=== PATIENT | female | born 1940 | race Caucasian/White ===

== ENCOUNTER 2022-01-31 10:15 | Outpatient (CLI) | payer MEDICARE, SELFPAY ==
[2022-01-31 11:58] LABS: Basophils Percent Auto 0.4 % (0.2-1.2); Eosinophils Absolute Auto 0.2 K/mm3 (0-0.3); Eosinophils Percent Auto 2.4 % (0-4.4); Hematocrit 44.8 % (37.0-47.0); Hemoglobin 14.5 g/dL (12.0-15.0); Immature Granulocyte Absolute 0.04 K/mm3 (0.00-0.031); Immature Granulocyte Percent A 0.4 % (0-0.5); Lymphocytes Absolute Auto 1.64 K/mm3 (0.9-3.2); Lymphocytes Percent Auto 18.2 % (18.3-44.2); Mean Corpuscular HGB Conc 32.4 g/dl (32-36); Mean Corpuscular Hemoglobin 29.8 pg (26-34); Mean Platelet Volume 10.2 fl (7.4-10.4); Monocytes Absolute Auto 0.7 K/mm3 (0.1-0.6); Monocytes Percent Auto 7.2 % (2.6-8.5); Neutrophils Absolute Auto 6.4 K/mm3 (1.3-6.7); Neutrophils Percent Auto 71.4 % (45.5-73.1); Platelet Count Result 301 k/mm3 (150-375); Red Blood Count 4.87 M/mm3 (4.2-5.4); Red Cell Distribution Width 13.2 % (11.5-14.5)
[2022-01-31 12:07] LABS: Hemoglobin A1C 5.9 % (<5.7)
[2022-01-31 12:08] LABS: Alanine Aminotransferase 16 U/L (6-35); Albumin Level 4.4 g/dL (3.5-5.1); Alkaline Phosphatase 103 U/L (38-126); Anion Gap 9 mmol/L (8-16); Aspartate Amino Transferase 48 U/L (14-36); Bilirubin,Total 1.9 mg/dL (0.2-1.3); Blood Urea Nitrogen 32 mg/dL (7-17); Calcium 9.2 mg/dL (8.4-10.2); Carbon Dioxide 32 mmol/L (22-30); Chloride 100 mmol/L (98-107); Cholesterol 208 mg/dL (0-200); Estimated Glomerular Filt Rate 39; Glucose 126 mg/dL (65-110); HDL Direct 41 mg/dL; Potassium 4.6 mmol/L (3.4-5.0); Sodium 141 mmol/L (137-145); Triglycerides 135 mg/dL (<150)
[2022-01-31 12:22] LABS: LDL Cholesterol Direct 103 mg/dL
== END 2022-01-31 10:16 | disposition home or self-care (01) ==
LOC: ANHGOSHLAB 10:17
PROVIDERS: PCP Family Medicine; Visit Provider Physician Assistant
DX: R73.03 Prediabetes (principal); Z51.81 Encounter for therapeutic drug level monitoring; Z79.899 Other long term (current) drug therapy; Z00.00 Encounter for general adult medical examination without abnormal findings
CPT/HCPCS: 36415; 80053; 80061; 83036; 84443; 85025

== ENCOUNTER 2022-03-21 08:49 | Outpatient (CLI) | payer MEDICARE, SELFPAY ==
[2022-03-21 19:02] LABS: Alanine Aminotransferase 18 U/L (6-35); Albumin Level 4.1 g/dL (3.5-5.1); Alkaline Phosphatase 85 U/L (38-126); Anion Gap 12 mmol/L (8-16); Aspartate Amino Transferase 37 U/L (14-36); Bilirubin,Total 1.4 mg/dL (0.2-1.3); Blood Urea Nitrogen 26 mg/dL (7-17); Calcium 8.5 mg/dL (8.4-10.2); Carbon Dioxide 29 mmol/L (22-30); Chloride 100 mmol/L (98-107); Estimated Glomerular Filt Rate 47; Glucose 111 mg/dL (65-110); Potassium 3.6 mmol/L (3.4-5.0); Sodium 141 mmol/L (137-145)
== END 2022-03-21 08:50 | disposition home or self-care (01) ==
PROVIDERS: PCP Family Medicine; Visit Provider Physician Assistant
DX: N18.9 Chronic kidney disease, unspecified (principal); R74.8 Abnormal levels of other serum enzymes
CPT/HCPCS: 36415; 80053

== ENCOUNTER 2022-04-02 08:30 | Outpatient (CLI) | payer MEDICARE, SELFPAY ==
--- NOTE | ~2022-04-02 | MM_ITS ---
EXAMINATION: MM screening [facility] BI w panda HISTORY: Screening mammogram TECHNIQUE: Craniocaudal and mediolateral oblique 3-D tomosynthesis images were obtained and synthetic 2-D images were generated. CAD analysis was submitted and interpreted. COMPARISON: 06/28/2016, 06/04/2014 BREAST PARENCHYMAL COMPOSITION: There are scattered areas of fibroglandular density. FINDINGS: Scattered benign-appearing calcifications are present. There is no suspicious mass, calcifi cation, or architectural distortion to suggest malignancy in either breast. There has been no suspici ous interval change. IMPRESSION: 1. No mammographic evidence of malignancy. 2. Recommend routine screening mammography in one year. BI-RADS Category 2: Benign finding(s). Reviewed, dictated and finalized at location A.
== END 2022-04-02 08:31 | disposition home or self-care (01) ==
PROVIDERS: PCP Family Medicine; Visit Provider Physician Assistant
DX: Z12.31 Encounter for screening mammogram for malignant neoplasm of breast (principal)
CPT/HCPCS: 77063; 77067

== ENCOUNTER 2023-01-29 10:00 | Outpatient (CLI) | payer MEDICARE, SELFPAY ==
[2023-01-29 20:30] LABS: Basophils Percent Auto 0.6 % (0.2-1.2); Eosinophils Absolute Auto 0.2 K/mm3 (0-0.3); Eosinophils Percent Auto 4.6 % (0-4.4); Hematocrit 42.9 % (37.0-47.0); Hemoglobin 13.4 g/dL (12.0-15.0); Immature Granulocyte Absolute 0.01 K/mm3 (0.00-0.031); Immature Granulocyte Percent A 0.2 % (0-0.5); Lymphocytes Percent Auto 29.8 % (18.3-44.2); Mean Corpuscular HGB Conc 31.2 g/dl (32-36); Mean Platelet Volume 10.2 fl (7.4-10.4); Monocytes Absolute Auto 0.4 K/mm3 (0.1-0.6); Monocytes Percent Auto 6.9 % (2.6-8.5); Neutrophils Absolute Auto 2.9 K/mm3 (1.3-6.7); Neutrophils Percent Auto 57.9 % (45.5-73.1); Platelet Count Result 289 k/mm3 (150-375); Red Blood Count 4.47 M/mm3 (4.2-5.4); Red Cell Distribution Width 13.5 % (11.5-14.5)
[2023-01-29 20:48] LABS: Alanine Aminotransferase 20 U/L (6-35); Albumin Level 4.1 g/dL (3.5-5.1); Alkaline Phosphatase 79 U/L (38-126); Anion Gap 4 mmol/L (8-16); Aspartate Amino Transferase 38 U/L (14-36); Bilirubin,Total 1.5 mg/dL (0.2-1.3); Blood Urea Nitrogen 31 mg/dL (7-17); Carbon Dioxide 35 mmol/L (22-30); Chloride 101 mmol/L (98-107); Cholesterol 183 mg/dL (0-200); Estimated Glomerular Filt Rate 47; Glucose 103 mg/dL (65-110); HDL Direct 44 mg/dL; Potassium 4.6 mmol/L (3.4-5.0); Sodium 140 mmol/L (137-145); Triglycerides 109 mg/dL (<150)
[2023-01-29 20:59] LABS: LDL Cholesterol Direct 86 mg/dL
== END 2023-01-29 10:01 | disposition home or self-care (01) ==
LOC: ANHGOSHLAB 10:02
PROVIDERS: PCP Family Medicine; Visit Provider Physician Assistant
DX: I10 Essential (primary) hypertension (principal); R73.03 Prediabetes; Z79.899 Other long term (current) drug therapy
CPT/HCPCS: 36415; 80053; 80061; 83036; 84443; 85025

== ENCOUNTER 2023-05-31 09:40 | Outpatient (CLI) | payer MEDICARE, SELFPAY ==
[2023-05-31 18:46] LABS: Alanine Aminotransferase 20 U/L (6-35); Albumin Level 4.2 g/dL (3.5-5.1); Alkaline Phosphatase 86 U/L (38-126); Anion Gap 12 mmol/L (8-16); Aspartate Amino Transferase 36 U/L (14-36); Bilirubin,Total 1.5 mg/dL (0.2-1.3); Blood Urea Nitrogen 34 mg/dL (7-17); Calcium 8.9 mg/dL (8.4-10.2); Carbon Dioxide 28 mmol/L (22-30); Chloride 100 mmol/L (98-107); Cholesterol 197 mg/dL (0-200); Estimated Glomerular Filt Rate 43; Glucose 109 mg/dL (65-110); HDL Direct 55 mg/dL; Sodium 140 mmol/L (137-145); Triglycerides 105 mg/dL (<150)
[2023-05-31 18:58] LABS: LDL Cholesterol Direct 94 mg/dL
[2023-05-31 19:23] LABS: Hemoglobin A1C 5.7 % (<5.7)
== END 2023-05-31 09:41 | disposition home or self-care (01) ==
PROVIDERS: PCP Family Medicine; Visit Provider Physician Assistant
DX: I48.91 Unspecified atrial fibrillation (principal); E66.01 Morbid (severe) obesity due to excess calories; I10 Essential (primary) hypertension; R73.03 Prediabetes
CPT/HCPCS: 36415; 80053; 80061; 83036

== ENCOUNTER 2024-12-24 10:52 | Outpatient (CLI) | payer MEDICARE, SELFPAY ==
--- OUTSIDE RECORDS SUMMARY | 2024-12-24 11:50 | XMS_ITS ---
Author Organization [facility] Address [address] [place] [id number] Care Team Providers Care Revolving Inventory Clerk Name Role Phone Prateek Walsh MD Primary Care Provider +1 [phone] Active Problems Problem Noted Date Diagnosed Date Pacemaker 07/31/2018 Asystole 04/02/2018 Assessment & Plan (04/03/2018 9:14 AM CDT): Likely from vasalvagal in the setting of sitting on commode hours post op after w/ LOC with tele showing afib w/ RVR going into complete heart block w/ a slow junctional escape rhythm. no CP or SOB; no CPR or epi needed. - AED pads and atropine bedside; consider temp transcutaneous pacer - DCPPM today - trop neg x 2 - TTE thickened aoritc and mitral valve. EF 50-55%, Status post right hip replacement 04/02/2018 Assessment & Plan (04/03/2018 6:55 PM CDT): on 04/01 ortho following. Oxy prn for pain. - per ortho OOTB today - ortho number [phone] Assessment & Plan (04/02/2018 7:18 AM CDT): 04/01 w/ above complication; patient in some pain; ortho following - oxycodone prn for pain Complete heart block 04/02/2018 Assessment & Plan (04/04/2018 2:43 PM CDT): -This was likely in the setting of vaso vagal and pain from her hip replacement with baseline AV sandeep dysfunction (SSS?) and receiving BB. When patient arrived to CCU she had no more events of CHB or bradycardia and remained asymptomatic. -Home atenolol was held; -EP was consulted and patient went for a duel chamber pacemaker yesterday morning with no complications. -TSH was normal, trop neg x 2, and TTE showed EF 50-55% w/ thickened/calcified aortic and mitral valve leaflets. -no more episodes of asytole, bradycardia overnight; pacemaker checked today with no abnormalities -per EP weight bearing restrictions on right arm for 6 weeks; should not lift, push or pull anything > 10lbs; can move if she has to but should avoid weight bearing as much as possible. Assessment & Plan (04/02/2018 6:42 PM CDT): Her pauses are in the setting of likely AV sandeep disease. We cannot rule out a vagally mediated process but given the length of her pause and the associated symptoms and the possible need to control her rate or cardiovert her in the future it would be prudent to offer her a device at this time. - hold all AV sandeep blocking - atropine at bedside with pacing pads - NPO @ [place] for a dual chamber device - discussed with Dr. Angeles, will place device on right side given the need for rehabilitation and use of her left arm for cane support. No contraindication from a surgical side to place pacemaker at this time - prior to and after the implantation of her device she should not be on any heparin products A-fib 03/31/2018 Assessment & Plan (04/04/2018 2:38 PM CDT): Patient has been in afib w/ RVR since in the CCU and her atenolol was being held. - underwent dual chamber PPM placement yesterday -atenolol 50 mg qd started yesterday -overnight on tele she remained in Afib with RVR around 110s but peaking at 140s briefly a/w low pressures -atenolol uptitrated to 100mg qd today for better blood pressure control. -continuous tele monitoring; t/b with EP re dose adjustments in Atenolol. Aim for HR< 110 -F/U in EP clinic as arranged. Appointment and discharge instructions provided. -warfarin 4 mg started for anticoagulation today; per EP no rivaroxaban until 04/07 Assessment & Plan (04/02/2018 6:44 PM CDT): Currently - mild degree of rapid ventricular response. Continue to monitor, hold any AV sandeep blocking agents prior to device implantation. - she should be on a novel anticoagulants or warfarin for CVA prophylaxis after the implantation of her device - she should not be on any heparin products - AV sandeep blockade can be used after device implantation - she will need to follow up with Cardiology in the future to discuss rhythm control strategies if desired, her atrial anatomy may make this an undesirable strategy Assessment & Plan (04/03/2018 9:11 AM CDT): afib w/ RVR up 150s overnight. Holding atenolol, warfarin, and lovenox. TSH normal - DOAC or warfarin per EP recs. 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 Assessment & Plan (04/02/2018 7:06 AM CDT): continue HCTZ and lisinopril Current Treatment and Therapy Plans No current plan information found. Past Treatment and Therapy Plans No past plan information found. Lifetime Dose Tracking * Chemical Lifetime Dose Automatic Entry Manual Entr y Air kerma at the reference point (Ka,r) 43 mGy 0 mGy 43 mGy
--- OUTSIDE RECORDS SUMMARY | 2024-12-24 11:50 | XMS_ITS | Referral Summary ---
Author Organization [facility] Address [address] [place] [address] Care Team Providers Care Drywall Boardhanger Name Role Phone Prateek Walsh MD Primary Care Provider [phone] [phone] Encounters Date Type Department Care Team Description 10/16/2024 Orders Only [facility] Cardiology [address] [place] [address] [place] [address] Demar Angeles MD PhD from Last 3 Months Allergies No known active allergies Medications Eliquis 5 mg tablet TAKE 1 TABLET BY MOUTH TWICE A DAY 180 tablet 3 06/19/2024 Active dilTIAZem CD 120 mg 24 hr capsule TAKE 1 CAPSULE BY MOUTH EVERY DAY 90 capsule 3 09/21/2024 Active hydroCHLOROthia zide 12.5 mg tablet TAKE 1 TABLET BY MOUTH EVERY DAY IN THE MORNING 90 tablet 3 09/21/2024 Active lisinopriL (PRINIVIL,ZESTR IL) 10 mg tablet TAKE 1 TABLET BY MOUTH EVERY DAY 90 tablet 3 10/05/2024 Active atenoloL (TENORMIN) 100 mg tablet TAKE 1 TABLET BY MOUTH EVERY DAY 90 tablet 3 10/08/2024 Active Active Problems Problem Noted Date Diagnosed Date [...] per ortho OOTB today - ortho number [phone] Assessment & Plan (04/02/2018 7:18 AM CDT): [...] (02/05/2018): Added automatically from request for surgery [id number] Persistent atrial fibrillation 02/05/2018 Overview (04/03/2018): Added automatically from request for surgery [id number] Status post total replacement of left hip 2017 Joint pain, hip 10/30/2017 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 Assessment & Plan (04/02/2018 7:06 AM CDT): continue HCTZ and lisinopril Immunizations Immunization Administration Dates Next Due Influenza, Quad, Adjuvantated, Intramuscular Influenza, Quadrivalent, Rec ombinant, Egg Free, Preservative Free, Intramuscular 04/23/2019 Influenza, Quadrivalent, Spl it, Preservative Free, Intramuscular 04/12/2020 Influenza, Trivalent, High D ose, Split, Preservative Free, Intramuscular 04/01/2018 TD Preservative Free 01/21/2020 Td, adsorbed 01/21/2020 Social History Tobacco Use Types Packs/Day Years Used Date Smoking Tobacco: Never Smokeless Tobacco: Never Tobacco Cessation:Counseling Given: Not Answered Alcohol Use Standard Drinks/Week Comments No 0 (1 standard drink = 0.6 oz pur e alcohol) Comments No Sex and Gender Information Value Date Recorded Sex Assigned at Not on file Legal Sex Female 6:23 AM SIGN ERECTOR AND REPAIRER Gender Identity Not on file Sexual Orientation Not on file Last Filed Vital Signs Vital Sign Reading Time Taken Comments Blood Pressure 111/72 08/20/2023 1:54 PM SIGN ERECTOR AND REPAIRER Pulse 77 08/20/2023 1:54 PM SIGN ERECTOR AND REPAIRER Temperature 36.8 C (98.2 F) 09/17/2022 12:02 PM SIGN ERECTOR AND REPAIRER Respiratory Rate 16 09/17/2022 12:02 PM SIGN ERECTOR AND REPAIRER Oxygen Saturation 93% 08/20/2023 1:54 PM SIGN ERECTOR AND REPAIRER Inhaled Oxygen Concentration - - Weight 110.7 kg (244 lb) 08/20/2024 12:41 PM SIGN ERECTOR AND REPAIRER Height 165.1 cm (5' 5) 08/20/2024 12:41 PM SIGN ERECTOR AND REPAIRER Body Mass Index 40.6 08/20/2024 12:41 PM SIGN ERECTOR AND REPAIRER Plan of Treatment Not on file Medical Devices Implanted Type Area Universal Grinder Tool Device Identifier Shelf Expiration Date Model / Serial / Lot [employer] [id number] Tendril Mri 8fr 52cm Is-1 Bipolar Connector Active Fixation - [id number] - [id number] Implanted:Qty: 1 on 04/03/2018 by Demar Angeles MD PhD at [facility] Lead Right: Heart [employer] [id number] 08/14/2019 [id number] / [id number] / [employer] [id number] Tendril Mri 8fr 46cm Is-1 Bipolar Connector Active Fixation - [id number] - [id number] Implanted:Qty: 1 on 04/03/2018 by Demar Angeles MD PhD at [facility] Lead Right: Heart [employer] [id number] 07/16/2019 [id number] / [id number] / [employer] [id number] Articul/Santosh 36mm Cementless M Specification No Skirt Greek Neck - S0 - [id number] Implanted:Qty: 1 on 12/26/2017 by Liam Green MD at [facility] Other - see comments Left: Hip [employer] 09/11/2022 [id number] / 0 / [id number] Description:head [employer] [place] 52mm 36mm Liner Hip Neutral Acetabular Altrx Sterile - S0 - [id number] Implanted:Qty: 1 on 12/26/2017 by Liam Green MD at [facility] Other - see comments Left: Hip [employer] 10/02/2022 [id number] / 0 / [id number] Description:Liner Stem Femoral Actis 3 High Offset Hip Collar - S0 - [id number] Implanted:Qty: 1 on 12/26/2017 by Liam Green MD at [facility] Other - see comments Left: Hip [employer] 05/14/2027 [id number] / 0 / [id number] Description:Stem [employer] [id number] Assurity Mri 11o00hr 2 Chamber Is-1 Connector Thk6mm Pacemaker - [id number] - [id number] Implanted:Qty: 1 on 04/03/2018 by Demar Angeles MD PhD at [facility] Pacemaker Right: Chest Wall [employer] [id number] 08/14/2019 [id number] / [id number] / [employer] [place] 6.5mm 40mm Screw Acetabular Cancellous Bone Sterile - S0 - [id number] Implanted:Qty: 1 on 12/26/2017 by Liam Green MD at [facility] Screw Left: Hip [employer] 02/11/2027 [id number] / 0 / [id number] [employer] [place] 6.5mm 30mm Screw Acetabular Cancellous Bone Revision - S0 - [id number] Implanted:Qty: 1 on 12/26/2017 by Liam Green MD at [facility] Screw Left: Hip [employer] 01/11/2027 0 / 0 / [id number] [employer] [place] 52mm Sector Shell Hip Acetabular Gription Sterile Latex - [id number] Implanted:Qty: 1 on 12/26/2017 by Liam Green MD at [facility] Left: Hip [employer] 08/14/2027 [id number] / / [employer] [id number] [place] 52mm 36mm Hip Neutral Liner Acetabular Altrx Sterile Latex Free - [id number] Implanted:Qty: 1 on 04/01/2018 by Liam Green MD at [facility] Right: Hip [employer] [id number] 02/11/2023 [id number] / / [employer] [id number] [place] 6.5mm 40mm Acetabular Cancellous Screw Bone Sterile - [id number] Implanted:Qty: 1 on 04/01/2018 by Liam Green MD at [facility] Right: Hip [employer] [id number] 10/13/2027 [id number] / / [employer] [id number] [place] 52mm Sector Hip Shell Acetabular Gription Sterile Latex Free - [id number] Implanted:Qty: 1 on 04/01/2018 by Liam Green MD at [facility] Right: Hip [employer] [id number] 02/12/2028 [id number] / / [employer] [id number] [place] 6.5mm 15mm Acetabular Cancellous Screw Bone Sterile - [id number] Implanted:Qty: 1 on 04/01/2018 by Liam Green MD at [facility] Right: Hip [employer] [id number] 05/14/2027 0 / / [employer] [id number] Actis Collar Hip 3 High Offset Stem Femoral - [id number] Implanted:Qty: 1 on 04/01/2018 by Liam Green MD at [facility] Right: Hip [employer] [id number] 11/12/2027 [id number] / / [employer] [id number] Articul/Santosh 36mm Cementless M Specification No Skirt Greek Neck Latex Free - [id number] Implanted:Qty: 1 on 04/01/2018 by Liam Green MD at [facility] Right: Hip [employer] [id number] 11/11/2022 0 / / Procedures Procedure Name Priority Date/Time Associated Diagnosis Comments DEVICE CHECK - REMOTE Routine 10/16/2024 4:00 AM CDT from Last 3 Months Results * DEVICE CHECK - REMOTE (10/16/2024 4:00 AM CDT) Anatomical Region Laterality Modality Other 10/16/2024 4:00 AM CDT Narrative 10/19/2024 10:07 AM CDT Interpretation Summary: Battery and Leads (BL) Normal parameters noted on battery and lead(s) --- 3 years remaining (this is an estimate based on prior usage) Presenting Rhythm (AR) Ventricular Pacing (METEOROLOGICAL OBSERVER) --- rate 60 Atrial Fibrillation or Flutter Arrhythmic events (AE) Longstanding persistent atrial fibrillation and/or flutter Anticoagulation (AC) Patient prescribed Apixaban (Eliquis) Patient on anticoagulant therapy Transmission Information (TI) Device Summary Report Procedure Note Demar Angeles MD PhD - 10/19/2024 Interpretation Summary: Battery and Leads (BL) Normal parameters noted on battery and lead(s) --- 3 years remaining(this is an estimate based on prior usage) Presenting Rhythm (AR) Ventricular Pacing (METEOROLOGICAL OBSERVER) --- rate 60 Atrial Fibrillation or Flutter Arrhythmic events (AE) Longstanding persistent atrial fibrillation and/or flutter Anticoagulation (AC) Patient prescribed Apixaban (Eliquis) Patient on anticoagulant therapy Transmission Information (TI) Device Summary Report us Demar Angeles MD PhD [facility] PRO CEDURES Final Result from Last 3 Months Insurance [employer] MEDICARE ADVANTAGE [facility] HMO REF Advance Directives For more information, please contact: [phone] * Full Code (Latest Code Status on File) Date Activated Date Inactivated Comments 04/01/2018 1:43 PM 04/07/2018 6:41 PM * Full Code Date Activated Date Inactivated Comments 12/26/2017 4:03 PM 12/27/2017 4:17 PM Care Teams Drywall Boardhanger Relationship Specialty Start Date End Date Prateek Walsh MD PCP - General 12/17/16
--- OUTSIDE RECORDS SUMMARY | 2024-12-24 11:50 | XMS_ITS | Encounter Summary ---
Author Organization [facility] Address [address] [place] [address] Care Team Providers Care Rn New Graduate Name Role Phone Prateek Walsh MD Primary Care Provider +1 -[phone] Unknown, Notinfile Unavailable Unavailable Encounter Details Date Type Department Care Team (Late st Contact Info) Description 04/14/2018 Telephone [facility] [address] [place] [address] Tania Lara MD [address] [place] [address] Social History Tobacco Use Types Packs/Day Years Used Date Smoking Tobacco: Never Smokeless Tobacco: Never Alcohol Use Standard Drinks/Week Comments No 0 (1 standard drink = 0.6 oz pur e alcohol) Comments No Sex and Gender Information Value Date Recorded Sex Assigned at Not on file Legal Sex Female 6:23 AM AUTOMATION CLERK Gender Identity Not on file Sexual Orientation Not on file documented as of this encounter Plan of Treatment Not on file documented as of this encounter Visit Diagnoses Not on filedocumented in this encounter Care Teams Rn New Graduate Relationship Specialty Start Date End Date Prateek Walsh MD PCP - General 12/17/16 Unknown, Notinfile Referring Physician 09/12/20 09/16/22 documented as of this encounter
--- OUTSIDE RECORDS SUMMARY | 2024-12-24 11:50 | XMS_ITS | Clinical Summary ---
Author Organization [facility] Address [address] [place] [id number] Care Team Providers Care Health Education Specialist Name Role Phone Prateek Walsh MD Primary Care Provider [phone] [phone] Allergies No known active allergies Medications Eliquis [...] per ortho OOTB today - ortho number [phone] Assessment & Plan (04/02/2018 7:18 AM CDT): [...] (02/05/2018): Added automatically from request for surgery [id number] Persistent atrial fibrillation 02/05/2018 Overview (04/03/2018): Added automatically from request for surgery [id number] Status post total replacement of left hip 2017 Joint pain, hip 10/30/2017 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 Assessment & Plan (04/02/2018 7:06 AM CDT): continue HCTZ and lisinopril Encounters Date Type Department Care Team Description 10/16/2024 Orders Only [facility] Cardiology [address] [facility] [address]th [place] [address] [place] [address] Demar Angeles MD PhD from Last 3 Months Immunizations Immunization Administration Dates Next Due Influenza, Quad, Adjuvantated, Intramuscular Influenza, Quadrivalent, Rec ombinant, Egg Free, Preservative Free, Intramuscular 04/23/2019 Influenza, Quadrivalent, Spl it, Preservative Free, Intramuscular 04/12/2020 Influenza, Trivalent, High D ose, Split, Preservative Free, Intramuscular 04/01/2018 TD Preservative Free 01/21/2020 Td, adsorbed 01/21/2020 Surgical History Surgery Date Site/Laterality Comments GALLBLADDER SURGERY Gallbladder Surgery - Laparoscopic 15 years ago (Added by TW Conv) AR TOTAL ABDOMINAL HYSTERECT W/WO RMVL TUBE OVARY Hysterectomy - (Added by TW Conv) HIP SURGERY 12/26/2017 Left HYSTERECTOMY 07/15/2014 - 07/14/2015 DILATION AND CURETTAGE OF UTERUS Medical History Medical History Date Comments Atrial fibrillation (HCC) Arthritis HTN (hypertension) Type 2 diabetes mellitus (HCC) pre diabetes Delayed emergence from gener al anesthesia 2014 slow to wake up; did not req uire reintubation, no ICU A-fib (HCC) 03/31/2018 Uterine cancer (HCC) Family History Medical History Relation Name Comments Lung cancer Father Family history of lung cancer - (Added by TW Conv) Heart failure Mother Family history of heart failure - (Added by TW Conv) Stroke Mother Family history of cerebrovascular accident - (Added by TW Conv) Relation Name Status Comments Father (Age 76) Mother (Age 95) Social History Tobacco Use Types Packs/Day Years Used Date Smoking Tobacco: Never Smokeless Tobacco: Never Tobacco Cessation:Counseling Given: Not Answered Alcohol Use Standard Drinks/Week Comments No 0 (1 standard drink = 0.6 oz pur e alcohol) Comments No Sex and Gender Information Value Date Recorded Sex Assigned at Not on file Legal Sex Female 6:23 AM SALES PORTER Gender Identity Not on file Sexual Orientation Not on file Obstetrics History Para Term AB IAB SAB Ectopic Multiple Livin g Live Births 0 0 0 0 0 0 0 0 0 0 0 Last Filed Vital Signs Vital Sign Reading Time Taken Comments Blood Pressure 111/72 08/20/2023 1:54 PM SALES PORTER Pulse 77 08/20/2023 1:54 PM SALES PORTER Temperature 36.8 C (98.2 F) 09/17/2022 12:02 PM SALES PORTER Respiratory Rate 16 09/17/2022 12:02 PM SALES PORTER Oxygen Saturation 93% 08/20/2023 1:54 PM SALES PORTER Inhaled Oxygen Concentration - - Weight 110.7 kg (244 lb) 08/20/2024 12:41 PM SALES PORTER Height 165.1 cm (5' 5) 08/20/2024 12:41 PM SALES PORTER Body Mass Index 40.6 08/20/2024 12:41 PM SALES PORTER Plan of Treatment Health Maintenance Due Date Last Done Comments Depression Screening 1939 Fall Risk Assessment 1939 Osteoporosis Screening-Bone Density Scan 1939 Hepatitis B Screening 1957 Pneumococcal vaccine 65+ (1 of 2 - PCV) 1958 Zoster Vaccine (1 of 2) 1989 Well Visit 65+ 02/24/2004 DTaP/Tdap/Td Vaccine (1 - Tdap) 01/22/2020 0, 01/21/2020 Influenza Vaccine (Season Ended) 2025 04/12/2020, 04/12/2020, 04/23/2019, Additional history exists Medical Devices Implanted Type Area Travel Nurse Device Identifier Shelf Expiration Date Model / Serial / Lot [employer] [id number] Tendril Mri 8fr 52cm Is-1 Bipolar Connector Active Fixation - [id number] - [id number] Implanted:Qty: 1 on 04/03/2018 by Demar Angeles MD PhD at [facility] Lead Right: Heart [employer] [id number] 08/14/2019 [id number]-1 2 / [id number] / [employer] [id number] Tendril Mri 8fr 46cm Is-1 Bipolar Connector Active Fixation - [id number] - [id number] Implanted:Qty: 1 on 04/03/2018 by Demar Angeles MD PhD at [facility] Lead Right: Heart [employer] [id number] 07/16/2019 [id number]-6 6 / [id number] / [employer] [id number] Articul/Santosh 36mm Cementless M Specification No Skirt [place] Neck - S0 - [id number] Implanted:Qty: 1 on 12/26/2017 by Liam Green MD at [facility] Other - see comments Left: Hip [employer] 09/11/2022 [id number] / 0 / [id number] Description:head [employer] [place] 52mm 36mm Liner Hip Neutral Acetabular Altrx Sterile - S0 - [id number] Implanted:Qty: 1 on 12/26/2017 by Liam Green MD at [facility] Other - see comments Left: Hip [employer] 10/02/2022 [id number] / 0 / [id number] Description:Liner Stem Femoral Actis 3 High Offset Hip Collar - S0 - [id number] Implanted:Qty: 1 on 12/26/2017 by Liam Green MD at [facility] Other - see comments Left: Hip [employer] 05/14/2027 [id number] / 0 / [id number] Description:Stem [employer] [id number] Assurity Mri [id number] 2 Chamber Is-1 Connector Thk6mm Pacemaker - [id number] - [id number] Implanted:Qty: 1 on 04/03/2018 by Demar Angeles MD PhD at [facility] Pacemaker Right: Chest Wall [employer] [id number] 08/14/2019 [id number] / [id number] / [employer] [place] 6.5mm 40mm Screw Acetabular Cancellous Bone Sterile - S0 - [id number] Implanted:Qty: 1 on 12/26/2017 by Liam Green MD at [facility] Screw Left: Hip [employer] 02/11/2027 [id number] / 0 / [id number] [employer] [place] 6.5mm 30mm Screw Acetabular Cancellous Bone Revision - S0 - [id number] Implanted:Qty: 1 on 12/26/2017 by Liam Green MD at [facility] Screw Left: Hip [employer] 01/11/2027 0 / 0 / [id number] [employer] [place] 52mm Sector Shell Hip Acetabular Gription Sterile Latex - [id number] Implanted:Qty: 1 on 12/26/2017 by Liam Green MD at [facility] Left: Hip [employer] 08/14/2027 [id number] / / [employer] [id number] [place] 52mm 36mm Hip Neutral Liner Acetabular Altrx Sterile Latex Free - [id number] Implanted:Qty: 1 on 04/01/2018 by Liam Green MD at [facility] Right: Hip [employer] [id number] 02/11/2023 [id number] / / [employer] [id number] [place] 6.5mm 40mm Acetabular Cancellous Screw Bone Sterile - [id number] Implanted:Qty: 1 on 04/01/2018 by Liam Green MD at [facility] Right: Hip [employer] [id number] 10/13/2027 [id number] / / [employer] [id number] [place] 52mm Sector Hip Shell Acetabular Gription Sterile Latex Free - [id number] Implanted:Qty: 1 on 04/01/2018 by Liam Green MD at [facility] Right: Hip [employer] [id number] 02/12/2028 [id number] / / [employer] 1217-15-500 [place] 6.5mm 15mm Acetabular Cancellous Screw Bone Sterile - [id number] Implanted:Qty: 1 on 04/01/2018 by Liam Green MD at [facility] Right: Hip [employer] [id number] 05/14/2027 0 / / [employer] [id number] Actis Collar Hip 3 High Offset Stem Femoral - [id number] Implanted:Qty: 1 on 04/01/2018 by Liam Green MD at [facility] Right: Hip [employer] [id number] 11/12/2027 [id number] / / [employer] 1365-52-000 Articul/Santosh 36mm Cementless M Specification No Skirt [place] Neck Latex Free - [id number] Implanted:Qty: 1 on 04/01/2018 by Liam Green MD at [facility] Right: Hip [employer] [id number] 11/11/2022 0 / / Procedures Procedure Name [...] prior usage) Presenting Rhythm (AR) Ventricular Pacing (HAND UMBRELLA TIPPER) --- rate 60 Atrial Fibrillation or Flutter [...] prior usage) Presenting Rhythm (AR) Ventricular Pacing (HAND UMBRELLA TIPPER) --- rate 60 Atrial Fibrillation or Flutter Arrhythmic events (AE) Longstanding persistent atrial fibrillation and/or flutter Anticoagulation (AC) Patient prescribed Apixaban (Eliquis) Patient on anticoagulant therapy Transmission Information (TI) Device Summary Report Demar Angeles MD PhD CV CARDIAC SERVICES PRO CEDURES Final Result from Last 3 Months Insurance UHC MEDICARE ADVANTAGE UHC MEDICARE ADVANTAGE [address] MDCR HMO REF Advance Directives For more information, please contact: [phone] * Full Code (Latest Code Status on File) Date Activated Date Inactivated Comments 04/01/2018 1:43 PM 04/07/2018 6:41 PM * Full Code Date Activated Date Inactivated Comments 12/26/2017 4:03 PM 12/27/2017 4:17 PM Care Teams Health Education Specialist Relationship Specialty Start Date End Date Prateek Walsh MD PCP - General 12/17/16
[2024-12-24 21:20] LABS: Alanine Aminotransferase 21 U/L (6-35); Albumin Level 4.5 g/dL (3.5-5.1); Alkaline Phosphatase 86 U/L (38-126); Anion Gap 11 mmol/L (4-12); Aspartate Amino Transferase 54 U/L (14-36); Bilirubin,Total 1.9 mg/dL (0.2-1.3); Blood Urea Nitrogen 31 mg/dL (7-17); Calcium 9.5 mg/dL (8.4-10.2); Carbon Dioxide 27 mmol/L (22-30); Chloride 101 mmol/L (98-107); Estimated Glomerular Filt Rate 49; Glucose 113 mg/dL (65-110); Potassium 4.6 mmol/L (3.4-5.0); Sodium 139 mmol/L (137-145); Total Protein 8.5 g/dL (6.3-8.2)
== END 2024-12-24 10:53 | disposition home or self-care (01) ==
LOC: ANHGOSHLAB 10:52
PROVIDERS: PCP Family Medicine; Visit Provider Family Medicine
DX: I51.7 Cardiomegaly (principal); I10 Essential (primary) hypertension; R73.03 Prediabetes
CPT/HCPCS: 36415; 80053

== ENCOUNTER 2025-01-07 10:17 | Outpatient (CLI) | payer MEDICARE, SELFPAY ==
--- NOTE | ~2025-01-07 | MM_ITS ---
EXAMINATION: MM screening [facility] BI w panda HISTORY: Screening mammogram TECHNIQUE: Craniocaudal and mediolateral oblique 3-D tomosynthesis images were obtained and synthetic 2-D images were generated. CAD analysis was submitted and interpreted. COMPARISON: 04/02/2022 BREAST PARENCHYMAL COMPOSITION:Not Dense. The breasts are almost entirely fatty FINDINGS: There is a 10 mm ovoid mass in the left subareolar region. Stable parenchymal appearance of the right breast. No suspicious microcalcifications. IMPRESSION: 10 mm ovoid mass in the subareolar left breast. Spot compression views and ultrasound are recommended for further evaluation. BI-RADS Category 0: Incomplete: Needs additional imaging evaluation. Reviewed, dictated and finalized at [facility]. IMPRESSION: 10 mm ovoid mass in the subareolar left breast. Spot compression views and ultr asound are recommended for further evaluation. BI-RADS Category 0: Incomplete: Needs additional imaging evaluation.
== END 2025-01-07 10:18 | disposition home or self-care (01) ==
LOC: ANHIMG 10:18
PROVIDERS: PCP Family Medicine; Visit Provider Family Medicine
DX: Z12.31 Encounter for screening mammogram for malignant neoplasm of breast (principal); R92.8 Other abnormal and inconclusive findings on diagnostic imaging of breast
CPT/HCPCS: 77063; 77067

== ENCOUNTER 2025-02-19 10:26 | Outpatient (CLI) | payer MEDICARE, SELFPAY ==
--- OUTSIDE RECORDS SUMMARY | 2025-02-02 11:28 | XMS_ITS | Encounter Summary ---
Author Organization [facility] Healthcare Address [address] [place] [address] Care Team Providers Care Pharmaceutical Botanist Name Role Phone Prateek Walsh MD Primary Care Provider [phone] [phone] Unknown, Notinfile Unavailable Unavailable Encounter Details Date Type Department Care Team (Late st Contact Info) Description 04/14/2018 Telephone [facility] [address] [place] [address] Tania Lara MD [address] [facility] [address] [place] [address] Social History Tobacco Use Types Packs/Day Years Used Date Smoking Tobacco: Never Smokeless Tobacco: Never Alcohol Use Standard Drinks/Week Comments No 0 (1 standard drink = 0.6 oz pur e alcohol) Comments No Sex and Gender Information Value Date Recorded Sex Assigned at Not on file Legal Sex Female 6:23 AM COREMAKING SUPERVISOR Gender Identity Not on file Sexual Orientation Not on file documented as of this encounter Plan of Treatment Not on file documented as of this encounter Visit Diagnoses Not on filedocumented in this encounter Care Teams Pharmaceutical Botanist Relationship Specialty Start Date End Date Prateek Walsh MD PCP - General 12/17/16 Unknown, Notinfile Referring Physician 09/12/20 09/16/22 documented as of this encounter
--- OUTSIDE RECORDS SUMMARY | 2025-02-02 11:28 | XMS_ITS | Referral Summary ---
Author Organization [facility] Address [address] [place] [address] Care Team Providers Care Commanding Officer Homicide Squad Name Role Phone Prateek Walsh MD Primary Care Provider [phone] [phone] Encounters Date Type Department Care Team Description 01/15/2025 Orders Only [facility] Cardiology [address] [facility] [address] [place] [address] [place] [address] Demar Angeles MD PhD from [...] per ortho OOTB today - ortho number [phone] Assessment & Plan (04/02/2018 7:18 AM CDT): [...] (02/05/2018): Added automatically from request for surgery [id number] Persistent atrial fibrillation 02/05/2018 Overview (04/03/2018): Added automatically from request for surgery [id number] Status post total replacement of left hip [...] on file Legal Sex Female 6:23 AM SENIOR CATEGORY MANAGER Gender Identity Not on file Sexual Orientation Not on file Last Filed Vital Signs Vital Sign Reading Time Taken Comments Blood Pressure 111/72 08/20/2023 1:54 PM SENIOR CATEGORY MANAGER Pulse 77 08/20/2023 1:54 PM SENIOR CATEGORY MANAGER Temperature 36.8 C (98.2 F) 09/17/2022 12:02 PM SENIOR CATEGORY MANAGER Respiratory Rate 16 09/17/2022 12:02 PM SENIOR CATEGORY MANAGER Oxygen Saturation 93% 08/20/2023 1:54 PM SENIOR CATEGORY MANAGER Inhaled Oxygen Concentration - - Weight 110.7 kg (244 lb) 08/20/2024 12:41 PM SENIOR CATEGORY MANAGER Height 165.1 cm (5' 5) 08/20/2024 12:41 PM SENIOR CATEGORY MANAGER Body Mass Index 40.6 08/20/2024 12:41 PM SENIOR CATEGORY MANAGER Plan of Treatment Not on file Medical Devices Implanted Type Area Field Insurance Sales Manager Device Identifier Shelf Expiration Date Model / Serial / Lot [employer] [id number] Tendril Mri 8fr 52cm Is-1 Bipolar Connector Active Fixation - [id number] - [id number] Implanted:Qty: 1 on 04/03/2018 by Demar Angeles MD PhD at [facility] Lead Right: Heart [employer] [id number] 08/14/2019 [id number]-0 2 / [id number] / [employer] [id number] Tendril Mri 8fr 46cm Is-1 Bipolar Connector Active Fixation - [id number] - [id number] Implanted:Qty: 1 on 04/03/2018 by Demar Angeles MD PhD at [facility] Lead Right: Heart [employer] [id number] 07/16/2019 [id number]-5 6 / [id number] / [employer] [id number] Articul/Santosh 36mm Cementless M Specification No Skirt [place] Neck - S0 - [id number] Implanted:Qty: 1 on 12/26/2017 by Liam Green MD at [facility] Other - see comments Left: Hip [employer] 09/11/2022 [id number] / 0 / [id number] Description:head [employer] [place] 52mm 36mm Liner Hip Neutral Acetabular Altrx Sterile - S0 - [id number] Implanted:Qty: 1 on 12/26/2017 by Liam Green MD at [facility] Other - see comments Left: Hip [employer] 10/02/2022 [id number] / 0 / [id number] Description:Liner Stem Femoral Actis 3 High Offset Hip Collar - S0 - [id number] Implanted:Qty: 1 on 12/26/2017 by Liam Green MD at [facility] Other - see comments Left: Hip [employer] 05/14/2027 [id number] / 0 / [id number] Description:Stem [employer] [id number] Assurity Mri [id number] 2 Chamber Is-1 Connector Thk6mm Pacemaker - [id number] - [id number] Implanted:Qty: 1 on 04/03/2018 by Demar Angeles MD PhD at [facility] Pacemaker Right: Chest Wall [employer] [id number] 08/14/2019 [id number] / [id number] / [employer] [place] 6.5mm 40mm Screw Acetabular Cancellous Bone Sterile - S0 - [id number] Implanted:Qty: 1 on 12/26/2017 by Liam Green MD at [facility] Screw Left: Hip [employer] 02/11/2027 [id number] / 0 / [id number] [employer] [place] 6.5mm 30mm Screw Acetabular Cancellous Bone Revision - S0 - [id number] Implanted:Qty: 1 on 12/26/2017 by Liam Green MD at [facility] Screw Left: Hip [employer] 01/11/2027 0 / 0 / [id number] [employer] [place] 52mm Sector Shell Hip Acetabular Gription Sterile Latex - [id number] Implanted:Qty: 1 on 12/26/2017 by Liam Green MD at [facility] Left: Hip [employer] 08/14/2027 [id number] / / [employer] [id number] [place] 52mm 36mm Hip Neutral Liner Acetabular Altrx Sterile Latex Free - [id number] Implanted:Qty: 1 on 04/01/2018 by Liam Green MD at [facility] Right: Hip [employer] [id number] 02/11/2023 [id number] / / [employer] [id number] [place] 6.5mm 40mm Acetabular Cancellous Screw Bone Sterile - [id number] Implanted:Qty: 1 on 04/01/2018 by Liam Green MD at [facility] Right: Hip [employer] [id number] 10/13/2027 [id number] / / [employer] [id number] [place] 52mm Sector Hip Shell Acetabular Gription Sterile Latex Free - [id number] Implanted:Qty: 1 on 04/01/2018 by Liam Green MD at [facility] Right: Hip [employer] [id number] 02/12/2028 [id number] / / [employer] 1217-15-500 [place] 6.5mm 15mm Acetabular Cancellous Screw Bone Sterile - [id number] Implanted:Qty: 1 on 04/01/2018 by Liam Green MD at [facility] Right: Hip [employer] [id number] 05/14/2027 0 / / [employer] [id number] Actis Collar Hip 3 High Offset Stem Femoral - [id number] Implanted:Qty: 1 on 04/01/2018 by Liam Green MD at [facility] Right: Hip [employer] [id number] 11/12/2027 [id number] / / [employer] 1365-52-000 Articul/Santosh 36mm Cementless M Specification No Skirt [place] Neck Latex Free - [id number] Implanted:Qty: 1 on 04/01/2018 by Liam Green MD at [facility] Right: Hip [employer] [id number] 11/11/2022 0 / / Procedures Procedure Name Priority Date/Time Associated Diagnosis Comments DEVICE CHECK - REMOTE Routine 01/15/2025 4:00 AM CDT from Last 3 Months Results * DEVICE CHECK - REMOTE (01/15/2025 4:00 AM CDT) Anatomical Region Laterality Modality Other 01/15/2025 4:00 AM CDT Narrative 01/22/2025 2:59 PM CDT Interpretation Summary: Battery and Leads (BL) Normal parameters noted on battery and lead(s) --- 2.75 years remaining (this is an estimate based on prior usage) Presenting Rhythm (UT) Ventricular Pacing (WHOLESALE MANAGER) --- rate 60 Atrial Fibrillation or Flutter Arrhythmic events (AE) Persistent atrial fibrillation and/or flutter Anticoagulation (AC) Patient on anticoagulant therapy Patient prescribed Apixaban (Eliquis) Transmission Information (TI) Device Summary Report Procedure Note Demar Angeles MD PhD - 01/22/2025 Interpretation Summary: Battery and Leads (BL) Normal parameters noted on battery and lead(s) --- 2.75 years remaining(this is an estimate based on prior usage) Presenting Rhythm (UT) Ventricular Pacing (WHOLESALE MANAGER) --- rate 60 Atrial Fibrillation or Flutter Arrhythmic events (AE) Persistent atrial fibrillation and/or flutter Anticoagulation (AC) Patient on anticoagulant therapy Patient prescribed Apixaban (Eliquis) Transmission Information (TI) Device Summary Report us Demar Angeles MD PhD CV CARDIAC SERVICES PRO CEDURES Final Result from Last 3 Months Insurance UHC MEDICARE ADVANTAGE [facility] MEDICARE Address: [address] [address] [facility] MEDICARE Address: [address] [address] [place] [address] [facility] MDCR HMO REF [facility] MEDICARE Address: [address] [address] [place] [address] Advance Directives For more information, please contact: [phone] * Full Code (Latest Code Status on File) Date Activated Date Inactivated Comments 04/01/2018 1:43 PM 04/07/2018 6:41 PM * Full Code Date Activated Date Inactivated Comments 12/26/2017 4:03 PM 12/27/2017 4:17 PM Care Teams Commanding Officer Homicide Squad Relationship Specialty Start Date End Date Prateek Walsh MD PCP - General 12/17/16
--- OUTSIDE RECORDS SUMMARY | 2025-02-02 11:28 | XMS_ITS | Clinical Summary ---
Author Organization [facility] Address [address] [place] [address] Care Team Providers Care Repairer Auto Clocks Name Role Phone Prateek Walsh MD Primary Care Provider +1 -[phone] Allergies No known active allergies Medications Eliquis [...] per ortho OOTB today - ortho number [phone] Assessment & Plan (04/02/2018 7:18 AM CDT): [...] (02/05/2018): Added automatically from request for surgery [id number] Persistent atrial fibrillation 02/05/2018 Overview (04/03/2018): Added automatically from request for surgery [id number] Status post total replacement of left hip 2017 Joint pain, hip 10/30/2017 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 Assessment & Plan (04/02/2018 7:06 AM CDT): continue HCTZ and lisinopril Encounters Date Type Department Care Team Description 01/15/2025 Orders Only [facility] [address] [facility] 8th [place] [address] [place] [address] Demar Angeles MD PhD from Last 3 [...] 15 years ago (Added by TW Conv) [place] TOTAL ABDOMINAL HYSTERECT W/WO RMVL TUBE OVARY [...] on file Legal Sex Female 6:23 AM GUEST SERVICE HOST Gender Identity Not on file Sexual Orientation Not on file Obstetrics History Para Term AB IAB SAB Ectopic Multiple Livin g Live Births 0 0 0 0 0 0 0 0 0 0 0 Last Filed Vital Signs Vital Sign Reading Time Taken Comments Blood Pressure 111/72 08/20/2023 1:54 PM GUEST SERVICE HOST Pulse 77 08/20/2023 1:54 PM GUEST SERVICE HOST Temperature 36.8 C (98.2 F) 09/17/2022 12:02 PM GUEST SERVICE HOST Respiratory Rate 16 09/17/2022 12:02 PM GUEST SERVICE HOST Oxygen Saturation 93% 08/20/2023 1:54 PM GUEST SERVICE HOST Inhaled Oxygen Concentration - - Weight 110.7 kg (244 lb) 08/20/2024 12:41 PM GUEST SERVICE HOST Height 165.1 cm (5' 5) 08/20/2024 12:41 PM GUEST SERVICE HOST Body Mass Index 40.6 08/20/2024 12:41 PM GUEST SERVICE HOST Plan of Treatment Health Maintenance Due Date Last Done Comments Depression Screening 1939 Fall Risk Assessment 1940 Osteoporosis Screening-Bone Density Scan 1939 Hepatitis B Screening 1957 Pneumococcal vaccine 65+ (1 of 2 - PCV) 1958 Zoster Vaccine (1 of 2) 1989 Well Visit 65+ 02/24/2004 DTaP/Tdap/Td Vaccine (1 - Tdap) 01/22/2020 0, 01/21/2020 Influenza Vaccine (#1) 2025 0, 04/12/2020, 04/23/2019, Additional history exists Medical Devices Implanted Type Area Insulator Tester Device Identifier Shelf Expiration Date Model / Serial / Lot [employer] [id number] Tendril Mri 8fr 52cm Is-1 Bipolar Connector Active Fixation - [id number] - [id number] Implanted:Qty: 1 on 04/03/2018 by Demar Angeles MD PhD at [facility] Lead Right: Heart [employer] [id number] 08/14/2019 [id number] 2 / [id number] / [employer] [id number] Tendril Mri 8fr 46cm Is-1 Bipolar Connector Active Fixation - [id number] - [id number] Implanted:Qty: 1 on 04/03/2018 by Demar Angeles MD PhD at [facility] Lead Right: Heart [employer] [id number] 07/16/2019 [id number] 6 / [id number] / [employer] [id number] Articul/Santosh 36mm Cementless M Specification No Skirt Albanian Neck - S0 - [id number] Implanted:Qty: 1 on 12/26/2017 by Liam Green MD at [facility] Other - see comments Left: Hip [employer] 09/11/2022 [id number] / 0 / [id number] Description:head [employer] [place] 52mm 36mm Liner Hip Neutral Acetabular Altrx Sterile - S0 - [id number] Implanted:Qty: 1 on 12/26/2017 by Liam Green MD at [facility] Other - see comments Left: Hip [employer] 10/02/2022 [id number] / 0 / [id number] Description:Liner Stem Femoral Actis 3 High Offset Hip Collar - S0 - [id number] Implanted:Qty: 1 on 12/26/2017 by Liam Green MD at [facility] Other - see comments Left: Hip [employer] 05/14/2027 [id number] / 0 / [id number] Description:Stem [employer] [id number] Assurity Mri [id number] 2 Chamber Is-1 Connector Thk6mm Pacemaker - [id number] - [id number] Implanted:Qty: 1 on 04/03/2018 by Demar Angeles MD PhD at [facility] Pacemaker Right: Chest Wall [employer] [id number] 08/14/2019 [id number] / [id number] / [employer] [place] 6.5mm 40mm Screw Acetabular Cancellous Bone Sterile - S0 - [id number] Implanted:Qty: 1 on 12/26/2017 by Liam Green MD at [facility] Screw Left: Hip [employer] 02/11/2027 [id number] / 0 / [id number] [employer] [place] 6.5mm 30mm Screw Acetabular Cancellous Bone Revision - S0 - [id number] Implanted:Qty: 1 on 12/26/2017 by Liam Green MD at [facility] Screw Left: Hip [employer] 01/11/2027 0 / 0 / [id number] [employer] [place] 52mm Sector Shell Hip Acetabular Gription Sterile Latex - [id number] Implanted:Qty: 1 on 12/26/2017 by Liam Green MD at [facility] Left: Hip [employer] 08/14/2027 [id number] / / [employer] [id number] [place] 52mm 36mm Hip Neutral Liner Acetabular Altrx Sterile Latex Free - [id number] Implanted:Qty: 1 on 04/01/2018 by Liam Green MD at [facility] Right: Hip [employer] [id number] 02/11/2023 [id number] / / [employer] [id number] [place] 6.5mm 40mm Acetabular Cancellous Screw Bone Sterile - [id number] Implanted:Qty: 1 on 04/01/2018 by Liam Green MD at [facility] Right: Hip [employer] [id number] 10/13/2027 [id number] / / [employer] [id number] [place] 52mm Sector Hip Shell Acetabular Gription Sterile Latex Free - [id number] Implanted:Qty: 1 on 04/01/2018 by Liam Green MD at [facility] Right: Hip [employer] [id number] 02/12/2028 [id number] / / [employer] 1217-15-500 [place] 6.5mm 15mm Acetabular Cancellous Screw Bone Sterile - [id number] Implanted:Qty: 1 on 04/01/2018 by Liam Green MD at [facility] Right: Hip [employer] [id number] 05/14/2027 0 / / [employer] [id number] Actis Collar Hip 3 High Offset Stem Femoral - [id number] Implanted:Qty: 1 on 04/01/2018 by Liam Green MD at [facility] Right: Hip [employer] [id number] 11/12/2027 [id number] / / [employer] 1365-52-000 Articul/Santosh 36mm Cementless M Specification No Skirt Albanian Neck Latex Free - [id number] Implanted:Qty: 1 on 04/01/2018 by Liam Green MD at [facility] Right: Hip [employer] [id number] 11/11/2022 0 / / Procedures Procedure Name [...] estimate based on prior usage) Presenting Rhythm ([place]) Ventricular Pacing (PRODUCT DESIGN SPECIALIST) --- rate 60 Atrial Fibrillation or Flutter [...] estimate based on prior usage) Presenting Rhythm ([place]I) Ventricular Pacing (PRODUCT DESIGN SPECIALIST) --- rate 60 Atrial Fibrillation or Flutter Arrhythmic events (AE) Persistent atrial fibrillation and/or flutter Anticoagulation (AC) Patient on anticoagulant therapy Patient prescribed Apixaban (Eliquis) Transmission Information (TI) Device Summary Report Demar Angeles MD PhD CV CARDIAC SERVICES PRO CEDURES Final Result from Last 3 Months Insurance UHC MEDICARE ADVANTAGE [facility] Address: [facility] [address] [place] [address] UHC MEDICARE ADVANTAGE [facility] Address: [facility] [address] MDCR HMO REF [facility] Address: [address] [address] [place] [address] Advance Directives For more information, please contact: [phone] * Full Code (Latest Code Status on File) Date Activated Date Inactivated Comments 04/01/2018 1:43 PM 04/07/2018 6:41 PM * Full Code Date Activated Date Inactivated Comments 12/26/2017 4:03 PM 12/27/2017 4:17 PM Care Teams Repairer Auto Clocks Relationship Specialty Start Date End Date Prateek Walsh MD PCP - General 12/17/16
--- OUTSIDE RECORDS SUMMARY | 2025-02-02 11:28 | XMS_ITS ---
Author Organization [facility] Address [address] [place] [address] Care Team Providers Care Sales Service Manager Name Role Phone Prateek Walsh MD Primary Care Provider +1 -[phone] Active Problems Problem Noted Date Diagnosed Date [...] per ortho OOTB today - ortho number [phone] Assessment & Plan (04/02/2018 7:18 AM CDT): [...] (02/05/2018): Added automatically from request for surgery [id number] Persistent atrial fibrillation 02/05/2018 Overview (04/03/2018): Added automatically from request for surgery [id number] Status post total replacement of left hip [...]
--- NOTE | ~2025-02-19 | MMUS_ITS ---
EXAMINATION: MM diagnostic celestine LT w panda, US breast LT limited INDICATION: 84-year old female; BI-RADS 0, callback from screening to evaluate a left subareolar mass . COMPARISON: 01/07/2025 TECHNIQUE: Digital breast tomosynthesis True lateral and spot compression of the BILATERAL breast wer e obtained with computer-aided detection to assist in interpretation of the study. Targeted ultrasoun d of the area of concern was completed. FINDINGS: There are scattered areas of fibroglandular density. A mass with circumscribed margins persists in the inferior lateral left breast. LEFT BREAST ULTRASOUND FINDINGS: Targeted sonographic evaluation of the inferior region was completed. At 5:00, 2 cm from the nipple there is a 0.8 x 0.9 x 0.7 cm complex mass that is predominantly cystic but has a soft tissue component in the dependent portion which may represent a soft tissue or debris . This lesion corresponds to the mammographic finding. In addition adjacent to the index complex mass described above, there is a small simple cyst that measures 0.3 cm in diameter. There is no sonograp hic abnormality seen in the subareolar region. IMPRESSION: Suspicious left breast complex mass at 5:00 location which correlates to the mammographic finding. RECOMMENDATION: Ultrasound-guided core biopsy/aspiration of left breast complex mass at 5:00. BI-RADS 4, SUSPICIOUS Reviewed, dictated and finalized at location B. IMPRESSION: Suspicious left breast complex mass at 5:00 location which correlates to the ma mmographic finding. RECOMMENDATION: Ultrasound-guided core biopsy/aspiration of left breast complex mass at 5:00. BI-RADS 4, SUSPICIOUS
--- OUTSIDE RECORDS SUMMARY | 2025-02-19 10:30 | XMS_ITS ---
Author Organization [facility] Address [address] [place] [address] Care Team Providers Care Inbound Sales Representative Name Role Phone Prateek Walsh MD Primary Care Provider +1 -[phone] Active Problems Problem Noted Date Diagnosed Date [...] per ortho OOTB today - ortho number [phone] Assessment & Plan (04/02/2018 7:18 AM CDT): [...] (02/05/2018): Added automatically from request for surgery [id number] Persistent atrial fibrillation 02/05/2018 Overview (04/03/2018): Added automatically from request for surgery [id number] Status post total replacement of left hip [...]
--- OUTSIDE RECORDS SUMMARY | 2025-02-19 10:30 | XMS_ITS | Encounter Summary ---
Author Organization [facility] Address [address] [place] [address] Care Team Providers Care Principal Programmer Name Role Phone Prateek Walsh MD Primary Care Provider +1 -[phone] Unknown, Notinfile Unavailable Unavailable Encounter Details Date Type Department Care Team (Late st Contact Info) Description 04/14/2018 Telephone [facility] [address] [facility] [address] [place] [address] Tania Lara MD [address] [facility] [address] [place] [address] Social History Tobacco Use Types Packs/Day Years Used Date Smoking Tobacco: Never Smokeless Tobacco: Never Alcohol Use Standard Drinks/Week Comments No 0 (1 standard drink = 0.6 oz pur e alcohol) Comments No Sex and Gender Information Value Date Recorded Sex Assigned at Not on file Legal Sex Female 6:23 AM AIR BAG BUILDER Gender Identity Not on file Sexual Orientation Not on file documented as of this encounter Plan of Treatment Not on file documented as of this encounter Visit Diagnoses Not on filedocumented in this encounter Care Teams Principal Programmer Relationship Specialty Start Date End Date Prateek Walsh MD PCP - General 12/17/16 Unknown, Notinfile Referring Physician 09/12/20 09/16/22 documented as of this encounter
--- OUTSIDE RECORDS SUMMARY | 2025-02-19 10:31 | XMS_ITS | Clinical Summary ---
Author Organization [facility] Address [address] [place] [address] Care Team Providers Care Radiographer Angiogram Name Role Phone Prateek Walsh MD Primary Care Provider +1 -[phone] Allergies No known active allergies Medications Eliquis [...] per ortho OOTB today - ortho number [phone] Assessment & Plan (04/02/2018 7:18 AM CDT): [...] (02/05/2018): Added automatically from request for surgery [id number] Persistent atrial fibrillation 02/05/2018 Overview (04/03/2018): Added automatically from request for surgery [id number] Status post total replacement of left hip 2017 Joint pain, hip 10/30/2017 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 Assessment & Plan (04/02/2018 7:06 AM CDT): continue HCTZ and lisinopril Encounters Date Type Department Care Team Description 01/15/2025 Orders Only [facility] [address] [facility] 8th [place] [address] [place] [address] Demar Angeles MD PhD from Last 3 [...] 15 years ago (Added by TW Conv) [place] TOTAL ABDOMINAL HYSTERECT W/WO RMVL TUBE OVARY Hysterectomy - (Added by TW Conv) HIP SURGERY 12/26/2017 Left HYSTERECTOMY 07/15/2014 - 07/14/2015 DILATION AND CURETTAGE OF UTERUS Medical History Medical History Date Comments Atrial fibrillation (HCC) Arthritis HTN (hypertension) Type 2 diabetes mellitus pre di abetes Delayed emergence from gener al anesthesia 2014 [...] on file Legal Sex Female 6:23 AM INFORMATION OPERATOR Gender Identity Not on file Sexual Orientation Not on file Obstetrics History Para Term AB IAB SAB Ectopic Multiple Livin g Live Births 0 0 0 0 0 0 0 0 0 0 0 Last Filed Vital Signs Vital Sign Reading Time Taken Comments Blood Pressure 111/72 08/20/2023 1:54 PM INFORMATION OPERATOR Pulse 77 08/20/2023 1:54 PM INFORMATION OPERATOR Temperature 36.8 C (98.2 F) 09/17/2022 12:02 PM INFORMATION OPERATOR Respiratory Rate 16 09/17/2022 12:02 PM INFORMATION OPERATOR Oxygen Saturation 93% 08/20/2023 1:54 PM INFORMATION OPERATOR Inhaled Oxygen Concentration - - Weight 110.7 kg (244 lb) 08/20/2024 12:41 PM INFORMATION OPERATOR Height 165.1 cm (5' 5) 08/20/2024 12:41 PM INFORMATION OPERATOR Body Mass Index 40.6 08/20/2024 12:41 PM INFORMATION OPERATOR Plan of Treatment Health Maintenance Due Date [...] history exists Medical Devices Implanted Type Area Machine Sprayer Device Identifier Shelf Expiration Date Model / Serial / Lot [employer] [id number] Tendril Mri 8fr 52cm Is-1 Bipolar Connector Active Fixation - [id number] - [id number] Implanted:Qty: 1 on 04/03/2018 by Demar Angeles MD PhD at [facility] Lead Right: Heart [employer] [id number] 08/14/2019 [id number] 2 / [id number] / [employer] [id number] Tendril Mri 8fr 46cm Is-1 Bipolar Connector Active Fixation - [id number] - [id number] Implanted:Qty: 1 on 04/03/2018 by Demar Angeles MD PhD at [facility] Lead Right: Heart [employer] [id number] 07/16/2019 [id number] 6 / [id number] / [employer] [id number] Articul/Santosh 36mm Cementless M Specification No Skirt Armenian Neck - S0 - [id number] Implanted:Qty: 1 on 12/26/2017 by Liam Green MD at [facility] Other - see comments Left: Hip [employer] 09/11/2022 [id number] / 0 / [id number] Description:head [employer] [place] 52mm 36mm Liner Hip Neutral Acetabular Altrx Sterile - S0 - [id number] Implanted:Qty: 1 on 12/26/2017 by Liam Green MD at [facility] Other - see comments Left: Hip [employer] 10/02/2022 [id number] / 0 / [id number] Description:Liner Stem Femoral Actis 3 High Offset Hip Collar - S0 - [id number] Implanted:Qty: 1 on 12/26/2017 by Liam Green MD at [facility] Other - see comments Left: Hip [employer] 05/14/2027 [id number] / 0 / [id number] Description:Stem [employer] [id number] Assurity Mri [id number] 2 Chamber Is-1 Connector Thk6mm Pacemaker - [id number] - [id number] Implanted:Qty: 1 on 04/03/2018 by Demar Angeles MD PhD at [facility] Pacemaker Right: Chest Wall [employer] [id number] 08/14/2019 [id number] / [id number] / [employer] [place] 6.5mm 40mm Screw Acetabular Cancellous Bone Sterile - S0 - [id number] Implanted:Qty: 1 on 12/26/2017 by Liam Green MD at [facility] Screw Left: Hip [employer] 02/11/2027 [id number] / 0 / [id number] [employer] [place] 6.5mm 30mm Screw Acetabular Cancellous Bone Revision - S0 - [id number] Implanted:Qty: 1 on 12/26/2017 by Liam Green MD at [facility] Screw Left: Hip [employer] 01/11/2027 0 / 0 / [id number] [employer] [place] 52mm Sector Shell Hip Acetabular Gription Sterile Latex - [id number] Implanted:Qty: 1 on 12/26/2017 by Liam Green MD at [facility] Left: Hip [employer] 08/14/2027 [id number] / / [employer] [id number] [place] 52mm 36mm Hip Neutral Liner Acetabular Altrx Sterile Latex Free - [id number] Implanted:Qty: 1 on 04/01/2018 by Liam Green MD at [facility] Right: Hip [employer] [id number] 02/11/2023 [id number] / / [employer] [id number] [place] 6.5mm 40mm Acetabular Cancellous Screw Bone Sterile - [id number] Implanted:Qty: 1 on 04/01/2018 by Liam Green MD at [facility] Right: Hip [employer] [id number] 10/13/2027 [id number] / / [employer] [id number] [place] 52mm Sector Hip Shell Acetabular Gription Sterile Latex Free - [id number] Implanted:Qty: 1 on 04/01/2018 by Liam Green MD at [facility] Right: Hip [employer] [id number] 02/12/2028 [id number] / / [employer] 1217-15-500 [place] 6.5mm 15mm Acetabular Cancellous Screw Bone Sterile - [id number] Implanted:Qty: 1 on 04/01/2018 by Liam Green MD at [facility] Right: Hip [employer] [id number] 05/14/2027 0 / / [employer] [id number] Actis Collar Hip 3 High Offset Stem Femoral - [id number] Implanted:Qty: 1 on 04/01/2018 by Liam Green MD at [facility] Right: Hip [employer] [id number] 11/12/2027 [id number] / / [employer] 1365-52-000 Articul/Santosh 36mm Cementless M Specification No Skirt Armenian Neck Latex Free - [id number] Implanted:Qty: 1 on 04/01/2018 by Liam Green MD at [facility] Right: Hip [employer] [id number] 11/11/2022 0 / / Procedures Procedure Name [...] estimate based on prior usage) Presenting Rhythm (GA) Ventricular Pacing (PUMPING STATION ENGINEER) --- rate 60 Atrial Fibrillation or Flutter [...] estimate based on prior usage) Presenting Rhythm (GA) Ventricular Pacing (PUMPING STATION ENGINEER) --- rate 60 Atrial Fibrillation or Flutter Arrhythmic events (AE) Persistent atrial fibrillation and/or flutter Anticoagulation (AC) Patient on anticoagulant therapy Patient prescribed Apixaban (Eliquis) Transmission Information (TI) Device Summary Report Demar Angeles MD PhD CV CARDIAC SERVICES PRO CEDURES Final Result from Last 3 Months Insurance UHC MEDICARE ADVANTAGE [facility] MEDIC[facility] Address: [place] [id number] [place] [id number] UHC MEDICARE ADVANTAGE [facility] MEDICARE Address: [facility] [address] MDCR HMO REF [facility] MEDICARE Address: [address] [address] [place] [address] Advance Directives For more information, please contact: [phone] * Full Code (Latest Code Status on File) Date Activated Date Inactivated Comments 04/01/2018 1:43 PM 04/07/2018 6:41 PM * Full Code Date Activated Date Inactivated Comments 12/26/2017 4:03 PM 12/27/2017 4:17 PM Care Teams Radiographer Angiogram Relationship Specialty Start Date End Date Prateek Walsh MD PCP - General 12/17/16
== END 2025-02-19 10:27 | disposition home or self-care (01) ==
PROVIDERS: PCP Family Medicine; Visit Provider Family Medicine
DX: Z12.31 Encounter for screening mammogram for malignant neoplasm of breast (principal); R92.8 Other abnormal and inconclusive findings on diagnostic imaging of breast
CPT/HCPCS: 76642; 77061; 77065; G0279

== ENCOUNTER 2025-07-14 11:02 | Outpatient (CLI) | payer MEDICARE, SELFPAY ==
--- OUTSIDE RECORDS SUMMARY | 2025-07-14 11:21 | XMS_ITS ---
Author Organization [facility] Address [address] [place] [address] Care Team Providers Care Business Continuity Global Director Name Role Phone Prateek Walsh MD Primary Care Provider +1 -[phone] Active Problems Problem Noted Date Diagnosed Date [...] per ortho OOTB today - ortho number [phone] Assessment & Plan (04/02/2018 7:18 AM CDT): [...] bedside with pacing pads - NPO @ [place] for a dual chamber device - discussed [...] (02/05/2018): Added automatically from request for surgery [id number] Persistent atrial fibrillation 02/05/2018 Overview (04/03/2018): Added automatically from request for surgery [id number] Status post total replacement of left hip [...] Lifetime Dose Automatic Entry Manual Entr y Fluoro Time 2.9 minutes 0 minutes 2.9 minutes Air kerma at the reference point (Ka,r) 43 mGy 0 mGy 43 mGy DAP 47.68 Gy-cm2 0 Gy-cm2 47.68 Gy-cm2
--- OUTSIDE RECORDS SUMMARY | 2025-07-14 11:21 | XMS_ITS | Encounter Summary ---
Author Organization [facility] Healthcare Address [address] [place] [address] Care Team Providers Care Gill Box Fixer Name Role Phone Prateek Walsh MD Primary Care Provider +1 -[phone] Unknown, Notinfile Unavailable Unavailable Encounter Details Date Type Department Care Team (Late st Contact Info) Description 04/14/2018 Telephone [facility] [address] [facility] [address] [place] [address] Tania Lara MD [address] [facility] [place], [place] [id number] Social History Tobacco Use Types Packs/Day Years Used Date Smoking Tobacco: Never Smokeless Tobacco: Never Alcohol Use Standard Drinks/Week Comments No 0 (1 standard drink = 0.6 oz pur e alcohol) Comments No Sex and Gender Information Value Date Recorded Sex Assigned at Not on file Legal Sex Female 6:23 AM EXAMINATION SCORER Gender Identity Not on file Sexual Orientation Not on file documented as of this encounter Plan of Treatment Not on file documented as of this encounter Visit Diagnoses Not on filedocumented in this encounter Care Teams Gill Box Fixer Relationship Specialty Start Date End Date Prateek Walsh MD PCP - General 12/17/16 Unknown, Notinfile Referring Physician 09/12/20 09/16/22 documented as of this encounter
--- OUTSIDE RECORDS SUMMARY | 2025-07-14 11:21 | XMS_ITS | Clinical Summary ---
Author Organization [facility] Address [address] [place] [address] Care Team Providers Care Tension Machine Operator Name Role Phone Prateek Walsh MD Primary Care Provider [phone] Allergies No known active allergies Medications dilTIAZem CD 120 mg 24 hr capsule [...] EVERY DAY 90 tablet 3 10/08/2024 Active Eliquis 5 mg tablet TAKE 1 TABLET BY MOUTH TWICE A DAY 180 tablet 3 06/11/2025 Active Active Problems Problem Noted Date Diagnosed [...] per ortho OOTB today - ortho number [phone] Assessment & Plan (04/02/2018 7:18 AM CDT): [...] (02/05/2018): Added automatically from request for surgery [id number] Persistent atrial fibrillation 02/05/2018 Overview (04/03/2018): Added automatically from request for surgery [id number] Status post total replacement of left hip 2017 Joint pain, hip 10/30/2017 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 Assessment & Plan (04/02/2018 7:06 AM CDT): continue HCTZ and lisinopril Encounters Date Type Department Care Team Description 04/16/2025 Remote Device Check [facility] Medicine Cardiology [address] [address] Demar Angeles MD PhD from Last 3 [...] 15 years ago (Added by TW Conv) [place] TOTAL ABDOMINAL HYSTERECT W/WO RMVL TUBE OVARY Hysterectomy - (Added by TW Conv) HIP SURGERY 12/26/2017 Left HYSTERECTOMY 07/15/2014 - 07/14/2015 DILATION AND CURETTAGE OF UTERUS BREAST BIOPSY 03/01/2025 Left Medical History Medical History Date Comments Atrial [...] on file Legal Sex Female 6:23 AM REQUIREMENTS ANALYST Gender Identity Not on file Sexual Orientation Not on file Obstetrics History Para Term AB IAB SAB Ectopic Multiple Livin g Live Births 0 0 0 0 0 0 0 0 0 0 0 Last Filed Vital Signs Vital Sign Reading Time Taken Comments Blood Pressure 138/72 03/01/2025 7:45 AM CDT Pulse 79 03/01/2025 7:45 AM CDT Temperature 35.9 C (96.6 F) 03/01/2025 7:45 AM CDT Respiratory Rate 16 09/17/2022 12:02 PM REQUIREMENTS ANALYST Oxygen Saturation 93% 08/20/2023 1:54 PM REQUIREMENTS ANALYST Inhaled Oxygen Concentration - - Weight 108.9 kg (240 lb) 03/01/2025 7:45 AM CDT Height 165.1 cm (5' 5) 03/01/2025 7:45 AM CDT Body Mass Index 39.94 03/01/2025 7:45 AM CDT Plan of Treatment Health Maintenance Due Date Last Done Comments Depression Screening 1940 Fall Risk Assessment 1940 Osteoporosis Screening-Bone Density Scan 1940 Hepatitis B Screening 1957 Pneumococcal vaccine 65+ (1 of 1 - PCV) 1989 Zoster Vaccine (1 of 2) 1989 Well Visit 65+ 02/24/2004 DTaP/Tdap/Td Vaccine (1 - Tdap) 01/22/2020 0, 01/21/2020 Influenza Vaccine (#1) 2025 0, 04/12/2020, 04/23/2019, Additional history exists Medical Devices Implanted Type Area Assistant Account Executive Device Identifier Shelf Expiration Date Model / Serial / Lot Bard Peripheral Vascular Marker Breast Dual Trigger Pva Ultraclip [id number] - [id number] - [id number] Implanted:Qty: 1 on 03/01/2025 by Wisam James MD at [facility] Breast Left: Breast [employer] [id number] 05/11/2027 [id number] / [id number] / [id number] Description:US breast biopsy left, 5:[address] [employer] [id number]-61 Tendril Mri 8fr 52cm Is-1 Bipolar Connector Active Fixation - [id number] - [id number] Implanted:Qty: 1 on 04/03/2018 by Demar Angeles MD PhD at [facility] Lead Right: Heart [employer] [id number] 08/14/2019 [id number]-1 2 / [id number] / [employer] Iam5607i-00 Tendril Mri 8fr 46cm Is-1 Bipolar Connector Active Fixation - [id number] - [id number] Implanted:Qty: 1 on 04/03/2018 by Demar Angeles MD PhD at [facility] Lead Right: Heart [employer] [id number] 07/16/2019 [id number]-4 6 / [id number] / [employer] [id number] Articul/Santosh 36mm Cementless M Specification No Skirt Haitian Neck - S0 - [id number] Implanted:Qty: 1 on 12/26/2017 by Liam Green MD at [facility] Other - see comments Left: Hip [employer] 09/11/2022 [id number] / 0 / [id number] Description:head [employer] [place] 52mm 36mm Liner Hip Neutral Acetabular Altrx Sterile - S0 - [id number] Implanted:Qty: 1 on 12/26/2017 by Liam Green MD at [facility] Other - see comments Left: Hip [employer] 10/02/2022 [id number] / 0 / [id number] Description:Liner Stem Femoral Actis 3 High Offset Hip Collar - S0 - [id number] Implanted:Qty: 1 on 12/26/2017 by Liam Green MD at [facility] Other - see comments Left: Hip [employer] 05/14/2027 [id number] / 0 / [id number] Description:Stem [employer] [id number] Assurity Mri 13v81sq 2 Chamber Is-1 Connector Thk6mm Pacemaker - [id number] - [id number] Implanted:Qty: 1 on 04/03/2018 by Demar Angeles MD PhD at [facility] Pacemaker Right: Chest Wall [employer] [id number] 08/14/2019 [id number] / [id number] / [employer] [place] 6.5mm 40mm Screw Acetabular Cancellous Bone Sterile - S0 - [id number] Implanted:Qty: 1 on 12/26/2017 by Liam Green MD at [facility] Screw Left: Hip [employer] 02/11/2027 [id number] / 0 / [id number] [employer] [place] 6.5mm 30mm Screw Acetabular Cancellous Bone Revision - S0 - [id number] Implanted:Qty: 1 on 12/26/2017 by Liam Green MD at [facility] Screw Left: Hip [employer] 01/11/2027 0 / 0 / [id number] [employer] [place] 52mm Sector Shell Hip Acetabular Gription Sterile Latex - [id number] Implanted:Qty: 1 on 12/26/2017 by Liam Green MD at [facility] Left: Hip [employer] 08/14/2027 [id number] / / [employer] [id number] [place] 52mm 36mm Hip Neutral Liner Acetabular Altrx Sterile Latex Free - [id number] Implanted:Qty: 1 on 04/01/2018 by Liam Green MD at [facility] Right: Hip [employer] [id number] 02/11/2023 [id number] / / [employer] [id number] [place] 6.5mm 40mm Acetabular Cancellous Screw Bone Sterile - [id number] Implanted:Qty: 1 on 04/01/2018 by Liam Green MD at [facility] Right: Hip [employer] [id number] 10/13/2027 [id number] / / [employer] [id number] [place] 52mm Sector Hip Shell Acetabular Gription Sterile Latex Free - [id number] Implanted:Qty: 1 on 04/01/2018 by Liam Green MD at [facility] Right: Hip [employer] [id number] 02/12/2028 [id number] / / [employer] 1217-15-500 [place] 6.5mm 15mm Acetabular Cancellous Screw Bone Sterile - [id number] Implanted:Qty: 1 on 04/01/2018 by Liam Green MD at [facility] Right: Hip [employer] [id number] 05/14/2027 0 / / [employer] [id number] Actis Collar Hip 3 High Offset Stem Femoral - [id number] Implanted:Qty: 1 on 04/01/2018 by Liam Green MD at [facility] Right: Hip [employer] [id number] 11/12/2027 [id number] / / [employer] 1365-52-000 Articul/Santosh 36mm Cementless M Specification No Skirt Haitian Neck Latex Free - [id number] Implanted:Qty: 1 on 04/01/2018 by Liam Green MD at [facility] Right: Hip [employer] [id number] 11/11/2022 0 / / Procedures Procedure Name Priority Date/Time Associated Diagnosis Comments DEVICE CHECK - REMOTE Routine 04/16/2025 from Last 3 Months Results * DEVICE CHECK - REMOTE (04/16/2025) Anatomical Region Laterality Modality Other 04/16/2025 04/16/2025 Narrative 06/23/2025 3:15 PM REQUIREMENTS ANALYST Device Summary Remote interrogation Mo ([employer]) pacemaker Date of Implant: Apr 03, 2018 Programmed Mode: DDDR Lower Rate: 60 bpm Device Functionality Presenting rhythm: AF-Physician Interventional Cardiologist 70 Device: Normal function Estimated Battery Longevity: 2 years 7 months Leads: Appear stable Atrial pacin.0 % RV pacin.0 % Episodes since 01-15-25 No SVT / VT / VF episodes AT/AF burden: 100% V rates during AF: 60-110 Erlin MORGAN, BSN Procedure Note Cyril Dangelo MD PhD - 06/23/2025 Device Summary Remote interrogation Mo ([employer]) pacemaker Date of Implant: Apr 03, 2018 Programmed Mode: DDDR Lower Rate: 60 bpm Device Functionality Presenting rhythm: AF-Physician Interventional Cardiologist 70 Device: Normal function Estimated Battery Longevity: 2 years 7 months Leads: Appear stable Atrial pacin.0 % RV pacin.0 % Episodes since 01-15-25 No SVT / VT / VF episodes AT/AF burden: 100% V rates during AF: 60-110 Erlin MORGAN, BSN Demar Angeles MD PhD CV CARDIAC SERVICES PRO CEDURES Final Result from Last 3 Months Insurance [employer] MEDICARE ADVANTAGE [place] [id number] [employer] [place]IC[place] ADVANTAGE [place] [id number] UHC MDCR HMO REF [place] [id number] Advance Directives For more information, please contact: [phone] * Full Code (Latest Code Status on File) Date Activated Date Inactivated Comments 04/01/2018 1:43 PM 04/07/2018 6:41 PM * Full Code Date Activated Date Inactivated Comments 12/26/2017 4:03 PM 12/27/2017 4:17 PM Care Teams Tension Machine Operator Relationship Specialty Start Date End Date Prateek Walsh MD PCP - General 12/17/16
[2025-07-14 18:38] LABS: Hematocrit 43.3 % (37.0-47.0); Hemoglobin 13.3 g/dL (12.0-15.0); Immature Granulocyte Percent A 0.6 % (0-0.5); Lymphocytes Absolute Auto 1.33 K/mm3 (0.9-3.2); Mean Corpuscular HGB Conc 30.7 g/dl (32-36); Mean Corpuscular Hemoglobin 30.0 pg (26-34); Mean Corpuscular Volume 97.7 fl (80-100); Nucleated Red Blood Cells Absolute Auto 0.000 K/mm3 (0.0-0.012); Nucleated Red Blood Cells Perc 0.0 % (0.0-0.2); Platelet Count Result 330 k/mm3 (150-375); Red Blood Count 4.43 M/mm3 (4.2-5.4); White Blood Count 6.6 K/mm3 (4.5-10.0)
[2025-07-14 18:47] LABS: Hemoglobin A1C 6.0 % (<5.7)
[2025-07-14 19:04] LABS: Alanine Aminotransferase 21 U/L (6-35); Albumin Level 4.4 g/dL (3.5-5.1); Alkaline Phosphatase 102 U/L (38-126); Anion Gap 9 mmol/L (4-12); Aspartate Amino Transferase 69 U/L (14-36); Bilirubin,Total 1.7 mg/dL (0.2-1.3); Blood Urea Nitrogen 32 mg/dL (7-17); Calcium 9.7 mg/dL (8.4-10.2); Carbon Dioxide 31 mmol/L (22-30); Chloride 100 mmol/L (98-107); Cholesterol 203 mg/dL (0-200); Estimated Glomerular Filt Rate 50; Glucose 109 mg/dL (65-110); HDL Direct 60 mg/dL; Potassium 4.6 mmol/L (3.4-5.0); Sodium 140 mmol/L (137-145); Total Protein 8.4 g/dL (6.3-8.2); Triglycerides 95 mg/dL (<150)
== END 2025-07-14 11:03 | disposition home or self-care (01) ==
PROVIDERS: PCP Family Medicine; Visit Provider Family Medicine
DX: E78.5 Hyperlipidemia, unspecified (principal); I48.19 Other persistent atrial fibrillation; R73.03 Prediabetes
CPT/HCPCS: 36415; 80053; 80061; 83036; 85025